=== PATIENT | female | born 1995 | race Caucasian/White ===

== ENCOUNTER 2023-10-12 23:15 | Inpatient (IN) | payer OTHER ==
[~2023-10-12] VITALS: Ht 147.3 cm; Wt 43.5 kg
[2023-10-13 00:26] LABS: ETHYL ALCOHOL (ETHANOL) 0.133 % (0.000-0.010)
[2023-10-13 00:27] LABS: ALBUMIN 4.2 G/DL (3.2-5.2); ALKALINE PHOSPHATASE 65 U/L (46-116); ALT/SGPT 25 U/L (7.0-40); AST/SGOT 23 U/L (<34); BILIRUBIN,DIRECT 0.1 MG/DL (<0.4); BILIRUBIN,TOTAL 0.4 MG/DL (0.3-1.2); BLOOD UREA NITROGEN 13 MG/DL (9-23); CALCIUM LEVEL 8.8 MG/DL (8.5-10.1); CARBON DIOXIDE LEVEL 23 MMOL/L (20-31); CHLORIDE LEVEL 103 MMOL/L (98-107); CREATININE FOR GFR 0.61 MG/DL (0.55-1.30); GLOMERULAR FILTRATION RATE > 60.0 (>60); GLUCOSE, FASTING 91 MG/DL (60-100); SALICYLATE LEVEL < 3.0 MG/DL (<30); SODIUM LEVEL 139 MMOL/L (136-145); TOTAL PROTEIN 7.7 G/DL (5.7-8.2)
[2023-10-13 00:29] LABS: THYROID STIMULATING HORMONE 1.724 uIU/ML (0.55-4.78)
[2023-10-13 00:35] LABS: AMPHETAMINES LEVEL URINE NEGATIVE (NEGATIVE); BARBITURATES URINE NEGATIVE (NEGATIVE); BENZODIAZEPINES URINE NEGATIVE (NEGATIVE)
[2023-10-13 00:36] LABS: CANNABINOIDS URINE NEGATIVE (NEGATIVE); COCAINE METABOLITE URINE NEGATIVE (NEGATIVE); METHADONE URINE NEGATIVE (NEGATIVE); OPIATES URINE NEGATIVE (NEGATIVE); PHENCYCLIDINE URINE NEGATIVE (NEGATIVE)
[2023-10-13 00:37] LABS: HEMATOCRIT 39.5 % (36.0-47.0); HEMOGLOBIN 13.4 g/dl (12.0-15.5); MEAN CORPUSCULAR HEMOGLOBIN 29.1 pg (27.0-33.0); MEAN CORPUSCULAR HGB CONC 33.9 g/dl (32.0-36.5); MEAN CORPUSCULAR VOLUME 85.9 fl (80.0-96.0); PLATELET COUNT, AUTOMATED 203 10^3/uL (150-450); WHITE BLOOD COUNT 8.1 10^3/uL (4.0-10.0)
[2023-10-13 00:45] LABS: HCG, SERUM QUALITATIVE NEGATIVE (NEGATIVE)
[2023-10-13] MEDS ORDERED: MED REC IN PROGRESS XX SCH (08:20)
[2023-10-13] MEDS ORDERED: LORazepam 2 MG TAB PO PRN (08:35)
[2023-10-13] MEDS ORDERED: MOM 30ML SUSPENSION UDC PO PRN (08:35)
[2023-10-13] MEDS ORDERED: traZODone 50 MG TAB PO PRN (08:35)
[2023-10-13] MEDS ORDERED: diphenhydrAMINE 25MG CAP PO PRN (08:35)
[2023-10-13] MEDS ORDERED: MAALOX 30 ML SUSP *UDC PO PRN (08:35)
[2023-10-13] MEDS ORDERED: FLUO10CA18 PO (09:41)
[2023-10-13] MEDS ORDERED: MIRT1TAB PO (09:41)
[2023-10-13] MEDS ORDERED: HOME MED LIST COMPLETE! XX SCH (09:55)
[2023-10-13] MEDS: FOLIC ACID 1MG TAB PO SCH (10:34)
[2023-10-13] MEDS: MULTIVITAMINS/MINERALS THERAP 1 TAB PO SCH (10:34)
[2023-10-13] MEDS: THIAMINE 100 MG TAB PO SCH ×2 (10:34→21:13)
[2023-10-13 10:45] VITALS: BP 122/80; TEMP 97.8; O2SAT 99
[2023-10-13] MEDS: ACETAMINOPHEN TAB 650MG DOSE (2X325MG) PO PRN (13:10)
[2023-10-13 14:00] VITALS: BP 122/80
[2023-10-13 18:40] VITALS: BP 134/68; TEMP 99.6
[2023-10-13 22:00] VITALS: BP 119/78
[2023-10-14 06:34] VITALS: BP 132/76; TEMP 99.2; O2SAT 97
[2023-10-14 08:00] VITALS: BP 132/76
[2023-10-14] MEDS: MULTIVITAMINS/MINERALS THERAP 1 TAB PO SCH (09:00)
[2023-10-14] MEDS: FLUoxetine 20MG CAP PO SCH ×2 (09:00→09:43)
[2023-10-14] MEDS: FOLIC ACID 1MG TAB PO SCH (09:05)
[2023-10-14] MEDS: THIAMINE 100 MG TAB PO SCH (09:05)
[2023-10-14 16:07] VITALS: BP 130/68; TEMP 98.8; O2SAT 98
[2023-10-14] MEDS: MIRTAZAPINE 7.5MG PER 1/2 TABLET PO SCH (21:16)
[2023-10-15 06:41] VITALS: BP 135/60; TEMP 98; O2SAT 100
[2023-10-15] MEDS: FLUoxetine 20MG CAP PO SCH (08:31)
[2023-10-15] MEDS: IBUPROFEN 400MG TAB PO PRN (15:47)
[2023-10-15 16:11] VITALS: BP 121/68; TEMP 98.3; O2SAT 100
[2023-10-15] MEDS: MIRTAZAPINE 7.5MG PER 1/2 TABLET PO SCH (21:15)
[2023-10-16 05:22] VITALS: BP 106/54; TEMP 97.7; O2SAT 100
[2023-10-16] MEDS: FLUoxetine 20MG CAP PO SCH (08:43)
[2023-10-16 15:54] VITALS: BP 126/64; TEMP 99.1; O2SAT 98
[2023-10-16] MEDS: MIRTAZAPINE 7.5MG PER 1/2 TABLET PO SCH (21:23)
[2023-10-17 06:39] VITALS: BP 119/76; TEMP 99.4; O2SAT 96
[2023-10-17] MEDS: ACETAMINOPHEN TAB 650MG DOSE (2X325MG) PO PRN (06:41)
[2023-10-17] MEDS: FLUoxetine 20MG CAP PO SCH (09:14)
[2023-10-17] MEDS: NALTREXONE 50 MG TAB PO SCH (09:14)
[2023-10-17 18:53] VITALS: BP 133/78; TEMP 99.8
[2023-10-17] MEDS: MIRTAZAPINE 7.5MG PER 1/2 TABLET PO SCH (21:11)
[2023-10-18 06:21] VITALS: BP 125/69; TEMP 99; O2SAT 97
[2023-10-18] MEDS: NALTREXONE 50 MG TAB PO SCH (09:00)
[2023-10-18] MEDS: FLUoxetine 20MG CAP PO SCH (09:00)
[2023-10-18 17:41] VITALS: BP 140/84; TEMP 99.7; O2SAT 98
[2023-10-18] MEDS: MIRTAZAPINE 7.5MG PER 1/2 TABLET PO SCH (21:08)
[2023-10-19 06:50] VITALS: BP 136/69; TEMP 98.3; O2SAT 97
[2023-10-19] MEDS: FLUoxetine 20MG CAP PO SCH (09:04)
[2023-10-19] MEDS: NALTREXONE 50 MG TAB PO SCH (09:04)
[2023-10-19 16:26] VITALS: BP 128/63; TEMP 98.5; O2SAT 100
[2023-10-19] MEDS: MIRTAZAPINE 7.5MG PER 1/2 TABLET PO SCH (20:28)
[2023-10-20 06:32] VITALS: BP 118/59; TEMP 98.4; O2SAT 98
[2023-10-20] MEDS: FLUoxetine 20MG CAP PO SCH (08:40)
[2023-10-20] MEDS: NALTREXONE 50 MG TAB PO SCH (08:40)
[2023-10-20] MEDS: PILL CUTTER 1 EACH XX PRN (08:40)
[2023-10-20 16:14] VITALS: BP 114/64; TEMP 99.2; O2SAT 100
[2023-10-20] MEDS: MIRTAZAPINE 7.5MG PER 1/2 TABLET PO SCH (20:23)
[2023-10-21 06:17] VITALS: BP 113/55; TEMP 97.7; O2SAT 97
[2023-10-21] MEDS: FLUoxetine 20MG CAP PO SCH (09:12)
[2023-10-21] MEDS: NALTREXONE 50 MG TAB PO SCH (09:12)
[2023-10-21 16:58] VITALS: BP 110/64; TEMP 98
[2023-10-21] MEDS: MIRTAZAPINE 7.5MG PER 1/2 TABLET PO SCH (20:09)
[2023-10-22 05:50] VITALS: BP 114/72; TEMP 98.6; O2SAT 98
[2023-10-22] MEDS: NALTREXONE 50 MG TAB PO SCH (08:38)
[2023-10-22] MEDS: FLUoxetine 20MG CAP PO SCH (08:38)
[2023-10-22 18:18] VITALS: BP 139/67; TEMP 98.7
[2023-10-22] MEDS: MIRTAZAPINE 7.5MG PER 1/2 TABLET PO SCH (20:11)
[2023-10-23 06:31] VITALS: BP 108/78; TEMP 98.9; O2SAT 99
[2023-10-23] MEDS: FLUoxetine 20MG CAP PO SCH (09:02)
[2023-10-23] MEDS: NALTREXONE 50 MG TAB PO SCH (09:02)
[2023-10-23 14:00] VITALS: BP 137/63; TEMP 98.7; O2SAT 97
[2023-10-23] MEDS: IBUPROFEN 400MG TAB PO PRN (15:46)
[2023-10-23] MEDS: MIRTAZAPINE 7.5MG PER 1/2 TABLET PO SCH (20:15)
[2023-10-24 06:41] VITALS: BP 106/64; TEMP 98.7; O2SAT 97
[2023-10-24] MEDS: FLUoxetine 20MG CAP PO SCH (08:46)
[2023-10-24] MEDS: PILL CUTTER 1 EACH XX PRN (08:47)
[2023-10-24] MEDS: NALTREXONE 50 MG TAB PO SCH (08:47)
[2023-10-24] MEDS ORDERED: NALT50TA4 PO (10:28)
[2023-10-24] MEDS ORDERED: MIRT1TAB PO (10:28)
[2023-10-24] MEDS ORDERED: FLUO40CA PO (10:28)
== END 2023-10-24 15:23 | DRG 885 ==
LOC: M ED 23:15 → EDBD 23:15 → M ED INP 10-13 08:35 → M PSY 10-13 10:45
PROVIDERS: ADMIT Student in an Organized Health Care Education/Training Program; ATTEND Student in an Organized Health Care Education/Training Program
DX: F32.1 Major depressive disorder, single episode, moderate (principal); R45.851 Suicidal ideations; F10.10 Alcohol abuse, uncomplicated; F43.20 Adjustment disorder, unspecified